=== PATIENT | female | born 1930 | race Caucasian/White ===

== ENCOUNTER 2016-11-30 14:40 | Emergency (ER) | payer MEDICARE ==
[2016-11-30 16:14] LABS: URINE APPEARANCE CLEAR; URINE BILIRUBIN NEGATIVE (NEGATIVE); URINE BLOOD 1+ (NEGATIVE); URINE COLOR YELLOW; URINE GLUCOSE (UA) NEGATIVE (NEGATIVE); URINE LEUKOCYTE ESTERASE NEGATIVE (NEGATIVE); URINE NITRITE NEGATIVE (NEGATIVE); URINE PROTEIN TRACE (NEGATIVE); URINE UROBILINOGEN NORMAL (0-1 mg/dl)
[2016-11-30 16:27] LABS: URINE EPITHELIAL CELLS 0-1 /hpf; URINE RBC 0-1 /hpf; URINE WBC RARE /hpf
[2016-11-30 16:28] LABS: URINE BACTERIA RARE
[2016-11-30] MEDS ORDERED: SODIUM CHLORIDE 0.9% 500 ML ONE (16:28)
[2016-11-30 16:38] LABS: ABSOLUTE NEUTROPHIL COUNT 6.1 K/mm3 (1.8-7.7); BASO % 0.3 % (0.2-1.0); HEMATOCRIT 40.1 % (37.0-47.0); IMM NEUT% 0.5 % (0-1); LYMPH % 12.6 % (15-45); MEAN CELL VOLUME 91.3 fl (81.0-99.0); MEAN CORPUSCULAR HEMOGLOBIN 29.6 pg (27.0-31.0); MEAN CORPUSCULAR HGB CONC 32.4 g/dl (33.0-37.0); MEAN PLATELET VOLUME 10.3 fl (7.4-10.4); MONO # 0.6 (0.0-0.8); MONO % 7.4 % (4-12); NEUT % 79.2 % (43-75); PLATELET COUNT 163 K/mm3 (130-400); RED CELL DISTRIBUTION WIDTH 12.9 % (11.5-14.5)
[2016-11-30 17:02] LABS: ALB/GLOB RATIO 1.2 (>1.0); ALBUMIN 3.7 gm/dL (3.5-5.7); CALCIUM 9.2 mg/dL (8.6-10.3)
--- NOTE | 2016-11-30 17:51 | RAD ---
EXAMINATION:CHEST - 2 VIEWS CLINICAL INDICATION: Cough COMPARISON: Prior exam dated 07/18/2013. FINDINGS: There is borderline cardiomegaly. Aortic ectasia is similar to the prior study. There is no adenopathy identified. There is a small left pleural effusion. Very prominent bronchovascular markings are noted. The osseous structures are unremarkable for age. IMPRESSION: Pertinent megaly with moderate pulmonary vascular congestion. There is a small left pleural effusion.
== END 2016-11-30 20:06 | disposition home or self-care (01) ==
LOC: ED 14:40
DX: M62.81 Muscle weakness (generalized) (principal); I50.9 Heart failure, unspecified; F03.90 Unspecified dementia, unspecified severity, without behavioral disturbance, psychotic disturbance, mood disturbance, and anxiety; R73.09 Other abnormal glucose; W18.30XA Fall on same level, unspecified, initial encounter; Y92.009 Unspecified place in unspecified non-institutional (private) residence as the place of occurrence of the external cause
CPT/HCPCS: 85025; 80053; 81001; 71020; 99285 ×2; 96360; 82962; J7040